=== PATIENT | male | born 1985 | race Hispanic/Latino ===

== ENCOUNTER 2017-07-01 19:38 | Emergency (ER) | payer OTHER ==
[2017-07-01 20:47] VITALS: BP 133/87; PULSE 87; RESP 20; TEMP 98.7; O2SAT 98
[2017-07-01] MEDS ORDERED: Naproxen 550 mg Tab PO STA (21:19)
[2017-07-01] MEDS ORDERED: Naproxen 550 mg Tab PO ONE (21:24)
--- NOTE | 2017-07-01 21:48 | C.PDOC ---
History Of Present Illness 31 yr old male presents to the ER stating for the past 2-3 months he has been having pain to the right wrist. Patient describes the pain as sharp and shooting , going up the arm. States the pain is worsened with movement and while trying to grab things. Patient reports he works for [employer] and does a lot of heavy lifting. Patient denies trauma, arm pain, shoulder pain, back pain, weakness or numbness. Time Seen by Provider: 07/01/17 20:52 Chief Complaint (Nursing): Upper Extremity Problem/Injury History Per: Patient History/Exam Limitations: no limitations Onset/Duration Of Symptoms: Days (2-3 months) Past Medical History Reviewed: Historical Data, Nursing Documentation, Vital Signs Vital Signs: Last Vital Signs Temp 98.7 F 07/01/17 20:43 Pulse 87 07/01/17 20:43 Resp 20 07/01/17 21:56 BP 133/87 07/01/17 20:43 Pulse Ox 98 07/01/17 21:48 Family History: States: No Known Family Hx - Social History Hx Tobacco Use: No Hx Alcohol Use: Yes Hx Substance Use: No - Immunization History Hx Tetanus Toxoid Vaccination: No Hx Influenza Vaccination: No Hx Pneumococcal Vaccination: No Review Of Systems Except As Marked, All Systems Reviewed And Found Negative. Musculoskeletal: Positive for: Other ((+) Right wrist pain). Negative for: Shoulder Pain, Arm Pain, Back Pain Neurological: Negative for: Weakness, Numbness Physical Exam - Physical Exam Appears: Non-toxic, No Acute Distress Skin: Warm, Dry, No Rash Head: Atraumatic, Normacephalic Oral Mucosa: Moist Respiratory: Normal Breath Sounds, No Rales, No Rhonchi, No Stridor, No Wheezing Extremity: Normal ROM, Tenderness (Right carpal tunnel), Capillary Refill (<2 secs), Other (No swelling. No ecchymoses.) Pulses: Left Radial: Normal, Right Radial: Normal Neurological/Psych: Oriented x3, Normal Speech, Normal Motor, Normal Sensation ED Course And Treatment O2 Sat by Pulse Oximetry: 98 (RA) Pulse Ox Interpretation: Normal Medical Decision Making Medical Decision Making: PLAN: * Naproxen PO Disposition - Disposition Referrals: Radha Mcdaniel MD [Staff Provider] - Disposition: HOME/ ROUTINE Disposition Time: 21:46 Condition: GOOD Additional Instructions: Follow up with the medical doctor within 1-2 days. Return if worsened. 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 - Scribe Statement The provider has reviewed the documentation as recorded by the Scribe Leticia Meeks All medical record entries made by the Kostaibdede were at my direction and personally dictated by me. I have reviewed the chart and agree that the record accurately reflects my personal performance of the history, physical exam, medical decision making, and the department course for this patient. I have also personally directed, reviewed, and agree with the discharge instructions and disposition.
== END 2017-07-01 21:56 | disposition home or self-care (01) ==
LOC: C.ER 19:38
DX: G56.01 Carpal tunnel syndrome, right upper limb (principal)

== ENCOUNTER 2017-07-14 22:50 | Emergency (ER) | payer OTHER ==
[2017-07-14 23:00] VITALS: BP 148/70; PULSE 89; RESP 20; TEMP 98; O2SAT 98
--- NOTE | 2017-07-14 23:55 | C.PDOC ---
History Of Present Illness Pt presents to ER requesting clearance for work tomorrow. Pt was seen in ED on 07/01/17 for right arm/ wrist pain and was advised to follow up with PMD . Pt states pain meds prescribed had relieved the pain, however today had moderate pain which caused him to miss work. Pt reports pain improvement now. Pt denies weakness, numbness or paresthesias. Time Seen by Provider: 07/14/17 23:12 Chief Complaint (Nursing): Medical Clearance Past Medical History Vital Signs: Last Vital Signs Temp 98 F 07/14/17 22:58 Pulse 89 07/14/17 22:58 Resp 20 07/14/17 22:58 BP 148/70 07/14/17 22:58 Pulse Ox 98 07/15/17 04:54 - Medical History PMH: No Chronic Diseases Family History: States: Unknown Family Hx - Social History Hx Tobacco Use: No Hx Alcohol Use: Yes Hx Substance Use: No - Immunization History Hx Tetanus Toxoid Vaccination: No Hx Influenza Vaccination: No Hx Pneumococcal Vaccination: No Review Of Systems Musculoskeletal: Positive for: Arm Pain (right) Neurological: Negative for: Weakness, Numbness Physical Exam - Physical Exam Appears: Well, Non-toxic Head: Atraumatic Eye(s): bilateral: Normal Inspection, PERRL Tongue: Normal Appearing Extremity: Bilateral: Atraumatic, Normal Color And Temperature, Normal ROM Pulses: Left Radial: Normal, Right Radial: Normal Neurological/Psych: Oriented x3, Normal Motor, Normal Sensation Gait: Steady ED Course And Treatment O2 Sat by Pulse Oximetry: 98 Pulse Ox Interpretation: Normal Progress Note: Pt is asymptomatic now with NL exam and advised follow up with PMD or specialist. Pt advised to wear a wrist splint for support Disposition Counseled Patient/Family Regarding: Diagnosis, Need For Followup - Disposition Referrals: PMD, PMD [Other] Disposition: HOME/ ROUTINE Disposition Time: 23:52 Condition: STABLE Additional Instructions: Please follow up with PMD / Keep appointment as scheduled Return to ER if worse Instructions: Arm Pain (ED) Forms: [facility] (Hebrew), Work Excuse - Clinical Impression Clinical Impression: Medical assessment, Wrist pain, right
== END 2017-07-15 00:08 | disposition home or self-care (01) ==
LOC: C.ER 22:50
DX: Z04.8 Encounter for examination and observation for other specified reasons (principal); M25.531 Pain in right wrist

== ENCOUNTER 2018-09-07 23:54 | Emergency (ER) | payer OTHER ==
[2018-09-08 00:20] VITALS: BMI 44.4
--- NOTE | 2018-09-08 01:35 | C.PDOC ---
History Of Present Illness 33 year old male presents to the ER stating he was walking a lot today and developed sudden onset of pain to the right ankle 4 hours [employer]. Patient does not recall any trauma. Denies weakness or numbness. Patient notes he "twists his ankles a lot". Time Seen by Provider: 09/08/18 00:22 Chief Complaint (Nursing): Lower Extremity Problem/Injury History Per: Patient History/Exam Limitations: no limitations Onset/Duration Of Symptoms: Hrs (4), Sudden Onset Current Symptoms Are (Timing): Still Present Recent travel outside of the [place]: No Past Medical History Reviewed: Historical Data, Nursing Documentation, Vital Signs Vital Signs: Last Vital Signs Temp 98.2 F 09/08/18 00:20 Pulse 79 09/08/18 00:20 Resp 20 09/08/18 00:20 BP 149/89 09/08/18 00:20 Pulse Ox 98 09/08/18 00:20 Family History: States: Unknown Family Hx - Social History Hx Tobacco Use: No Hx Alcohol Use: Yes Hx Substance Use: No - Immunization History Hx Tetanus Toxoid Vaccination: No Hx Influenza Vaccination: No Hx Pneumococcal Vaccination: No Review Of Systems Musculoskeletal: Positive for: Other (Right ankle pain) Neurological: Negative for: Weakness, Numbness Physical Exam - Physical Exam Appears: Non-toxic Skin: Normal Color, Warm, Dry, No Rash Head: Atraumatic, Normacephalic Eye(s): bilateral: Normal Inspection, PERRL, EOMI Oral Mucosa: Moist Neck: Normal ROM Chest: Symmetrical (equal expansion. No respiratory distress) Extremity: Normal ROM (x4), Capillary Refill (<2 seconds), No Deformity, No Swelling, Other (Mild swelling and tenderness to right lateral ankle) Pulses: Left Dorsalis Pedis: Normal, Right Dorsalis Pedis: Normal Neurological/Psych: Oriented x3, Normal Speech, Normal Motor, Normal Sensation Gait: Steady ED Course And Treatment O2 Sat by Pulse Oximetry: 98 (on RA) Pulse Ox Interpretation: Normal - Other Rad Right foot x-ray X-Ray: Interpreted by Me, Viewed By Me Interpretation: No acute fracture or dislocation. Right ankle x-ray X-Ray: Interpreted by Me, Viewed By Me Interpretation: No acute fracture or dislocation. Medical Decision Making Medical Decision Making: Right ankle and right foot x-rays ordered, results were negative. Tylenol administered. Patient is resting comfortably in no distress, ambulatory with steady gait, vitals are stable, patient placed in basim wrap for support and discharged home with instructions to follow up with PMD. Disposition - Disposition Referrals: Liliane Dawkins DPM [Staff Provider] - Disposition: HOME/ ROUTINE Disposition Time: :33 Condition: STABLE Additional Instructions: Follow up with the medical doctor within 1-2 days. Return if worsened. Prescriptions: Ibuprofen [Motrin] 600 mg PO TID #21 tab Instructions: Ankle Sprain (DC) Forms: Work Excuse - Clinical Impression Clinical Impression: Ankle sprain - PA / DIRECTOR OF HOME CARE HOSPICE / Resident Statement MD/DO has reviewed & agrees with the documentation as recorded. - Scribe Statement The provider has reviewed the documentation as recorded by the Scribdede Bernstein All medical record entries made by the Kostaibdede were at my direction and personally dictated by me. I have reviewed the chart and agree that the record accurately reflects my personal performance of the history, physical exam, medical decision making, and the department course for this patient. I have also personally directed, reviewed, and agree with the discharge instructions and disposition.
[2018-09-08 01:54] VITALS: BP 146/76; PULSE 76; RESP 19; TEMP 98
[2018-09-08 03:20] VITALS: O2SAT 98
--- NOTE | 2018-09-08 07:49 | RAD ---
Date of service: 09/08/2018 PROCEDURE: Right Foot Radiographs. HISTORY: foot injury COMPARISON: None. FINDINGS: BONES: 2 mm faint ossification borders inferior medial malleolus tiny chip osseous avulsion fracture injury possible-age indeterminate lower extremity, ankle and hindfoot soft tissue swelling present. No cortical fracture lines noted. Os tibial externum noted JOINTS: Normal. SOFT TISSUES: Swelling as above OTHER FINDINGS: None. IMPRESSION: No cortical fracture seen. Tiny inferior malleolar osseous chip avulsion injury possible-age indeterminate. Correlate clinically Other findings as above.
--- NOTE | 2018-09-08 07:52 | RAD ---
Date of service: 09/08/2018 PROCEDURE: Right Ankle Radiographs. HISTORY: ankle injury, pain COMPARISON: None available. FINDINGS: BONES: 2 mm faint ossification borders inferior medial malleolus-tiny chip osseous avulsion fracture injury here possible-age indeterminate. Prominent posterior os talar process JOINTS: No significant appearing osteoarthritis. Ankle mortise maintained. Talar dome intact SOFT TISSUES: Lower extremity, ankle and hindfoot soft tissue swelling present. OTHER FINDINGS: Eden's tendon insetional enesthesophyte. IMPRESSION: 2 mm faint ossification borders inferior medial malleolus-tiny chip osseous avulsion fracture injury here possible-age indeterminate. No cortical fracture line seen. Correlate clinically Diffuse soft tissue swelling present
== END 2018-09-08 01:55 | disposition home or self-care (01) ==
LOC: C.ER 23:54
DX: S93.401A Sprain of unspecified ligament of right ankle, initial encounter (principal); X58.XXXA Exposure to other specified factors, initial encounter; Y93.01 Activity, walking, marching and hiking